=== PATIENT | female | born 1985 | race African-American/Black ===

== ENCOUNTER 2019-01-15 14:23 | Observation (INO) ==
[2019-01-15] MEDS ORDERED: SODIUM CHLORIDE 0.9% 1,000 ML IV PRN ×2 (17:07→18:29)
[2019-01-15 17:24] LABS: Hematocrit 26.2 VOL% (35.7-47.0); Hemoglobin 7.4 GM/DL (12.0-16.0)
[2019-01-16 05:46] LABS: Basophils % 0.3 % (0.0-0.8); Eosinophils # 0.2 10*3/uL (0.0-0.87); Eosinophils % 2.6 % (0.00-10.9); Hematocrit 28.9 VOL% (35.7-47.0); Hemoglobin 8.6 GM/DL (12.0-16.0); Immature Granulocytes % 0.3 %; Immature Granulocytes Absolute 0.02 #; Lymphocytes # 2.1 10*3/uL (1.4-4.0); Lymphocytes % 26.7 % (21.3-54.2); Mean Corpuscular HGB Conc 29.8 GM/DL (32-36); Mean Corpuscular Hemoglobin 22 PG (27-34); Mean Corpuscular Volume 73.9 FL (87-102); Mean Platelet Volume 10.2 FL (9.6-12.0); Monocytes # 0.5 10*3/uL (0.11-0.8); Monocytes % 6.6 % (1.7-12.7); Neutrophils # 4.9 10*3/uL (1.4-7.4); Neutrophils % 63.5 % (38.7-73.9); Platelet Count 252 T/CUMM (130-400); Red Blood Count 3.91 MC/CUMM (3.8-5.5); White Blood Count 7.7 T/CUMM (4-12)
[2019-01-16] MEDS ORDERED: LISINOPRIL 20 MG TABLET PO SCH (09:00)
[2019-01-16] MEDS ORDERED: FERROUS SULFATE 325 MG TABLET PO SCH (11:00)
[2019-01-16 11:20] VITALS: BP 156/88
== END 2019-01-16 13:55 | disposition home or self-care (01) ==
LOC: N.OB
PROVIDERS: ADMIT Obstetrics & Gynecology; ATTEND Obstetrics & Gynecology

== ENCOUNTER 2022-01-18 08:37 | Inpatient (IN) ==
[2022-01-18 09:42] LABS: Bilirubin,Urine Negative (Negative); Blood, Urine Trace mg/dL (Negative); Glucose,Urine (UA) Negative (Negative); Ketones,Urine Negative (Negative); Mucus,Urine Occasional /LPF (Occasional); Nitrite,Urine Negative (Negative); Protein,Urine 30 mg/dL (Negative); RBC,Urine 1 /HPF (0-4); Squamous Epithelial Cell,Urine Few /HPF (0-10); Urine Appearance Clear (Clear); Urine Color Yellow (Yellow); Urine Specific Gravity 1.025 (1.001-1.035); Urine Urobilinogen 0.2 eU/dL (<2.0); Urine pH 6.5 (4.5-8.0)
[2022-01-18 09:55] LABS: Basophils % 0.3 % (0.0-0.8); Eosinophils % 0.2 % (0.00-10.9); Hematocrit 27.5 VOL% (35.7-47.0); Hemoglobin 8.7 GM/DL (12.0-16.0); Immature Granulocytes % 1.4 %; Immature Granulocytes Absolute 0.13 #; Lymphocytes # 1.1 10*3/uL (1.4-4.0); Lymphocytes % 11.9 % (21.3-54.2); Mean Corpuscular HGB Conc 31.6 GM/DL (32-36); Mean Corpuscular Volume 74.1 FL (87-102); Mean Platelet Volume 10.5 FL (9.6-12.0); Monocytes % 8.2 % (1.7-12.7); NRBC # 0.02 10*3/uL; Platelet Count 243 T/CUMM (130-400); Red Blood Count 3.71 MC/CUMM (3.8-5.5); Red Cell Distribution Width 16.7 % (9.3-17.3); White Blood Count 9.2 T/CUMM (4-12)
[2022-01-18] MEDS ORDERED: LABETALOL 100 MG/20 ML VIAL IV PRN (09:55)
[2022-01-18 10:18] LABS: Alanine Aminotransferase 23 U/L (13-56); Albumin 2.1 G/DL (3.4-5.0); Alkaline Phosphatase 154 U/L (45-117); Aspartate Amino Transferase 37 U/L (0-37); Bilirubin,Direct < 0.100 MG/DL (0.0-0.20); Blood Urea Nitrogen 15 MG/DL (7-18); Carbon Dioxide 24 MMOL/L (21-32); Estimated Glom Filtration Rate 196 ML/MIN; Glucose 95 MG/DL (74-106); Osmolality,Calculated 281.3 MOS/KG (273-304); PT Patient Result 11.1 SECS (10.5-12.0); Partial Thromboplastin Time 24.8 SECS (23.8-32.1); Potassium 3.2 MMOL/L (3.5-5.1); Sodium 141 MMOL/L (136-145); Total Protein 6.7 G/DL (6.4-8.2); Uric Acid 5.6 MG/DL (2.6-6.0)
[2022-01-18] MEDS: LABETALOL 20 MG/4 ML SYRINGE IV PRN (10:19)
[2022-01-18 10:40] LABS: Protein/Creatinine Ratio,Urine 0.3 RATIO
[2022-01-18] MEDS: LABETALOL 100 MG/20 ML VIAL IV PRN ×2 (10:51→11:08)
[2022-01-18] MEDS ORDERED: hydrALAZINE 20 MG/1 ML VIAL IV ONE ×3 (11:08→11:46)
[2022-01-18] MEDS ORDERED: BUTORPHANOL 2 MG/ML VIAL IV PRN (11:31)
[2022-01-18] MEDS ORDERED: MEPERIDINE 50 MG/1 ML VIAL IV PRN (11:31)
[2022-01-18] MEDS ORDERED: miSOPROStoL 200 MCG TABLET RECTAL PRN (11:31)
[2022-01-18] MEDS ORDERED: OXYTOCIN/LR 20 UNIT/1,000 ML BAG IV ONE ×4 (11:31→20:07)
[2022-01-18] MEDS ORDERED: CARBOPROST TROMETHAMINE 250 MCG/ML AMP IM PRN (11:31)
[2022-01-18] MEDS ORDERED: ONDANSETRON 4 MG/2 ML VIAL IV PRN ×2 (11:31→20:47)
[2022-01-18] MEDS ORDERED: METHYLERGONOVINE 0.2 MG/1 ML AMP IM PRN (11:31)
[2022-01-18] MEDS ORDERED: TRANEXAMIC ACID 1,000 MG in SODIUM CHLORIDE 0.9% 100 ML IV PRN (11:31)
[2022-01-18] MEDS ORDERED: LACTATED RINGERS 1,000 ML IV SCH ×2 (12:00→21:00)
[2022-01-18] MEDS ORDERED: MAGNESIUM SULF RIDER 4 GM/100 ML PREMIX IV ONE (13:41)
[2022-01-18] MEDS ORDERED: ACETAMINOPHEN 500 MG TABLET PO ONE (13:58)
[2022-01-18] MEDS ORDERED: MAGNESIUM SULF DRIP 40 GM/1,000 ML ML IV SCH (14:00)
[2022-01-18] MEDS ORDERED: CITRIC ACID/SODIUM CITRATE 30 ML UDCUP PO ONE (14:49)
[2022-01-18] MEDS ORDERED: FAMOTIDINE 20 MG/2 ML VIAL IV ONE ×2 (14:49→15:42)
[2022-01-18] MEDS ORDERED: ceFAZolin 3,000 MG in SYRINGE 1 EACH IV ONE (14:49)
[2022-01-18] MEDS: NIFEdipine 10 MG CAPSULE PO PRN (15:26)
[2022-01-18] MEDS ORDERED: miSOPROStoL 200 MCG TABLET ONE (15:39)
[2022-01-18] MEDS ORDERED: CARBOPROST TROMETHAMINE 250 MCG/ML AMP IM ONE (15:40)
[2022-01-18] MEDS ORDERED: METOCLOPRAMIDE 10 MG/2 ML VIAL ONE (15:41)
[2022-01-18] MEDS ORDERED: buprenorphine HCL 0.3 MG/ML VIAL ONE (15:53)
[2022-01-18] MEDS ORDERED: ONDANSETRON 4 MG/2 ML VIAL ONE (15:53)
[2022-01-18] MEDS ORDERED: BUPIVACAINE SPINAL 0.75% 2 ML AMP SPINAL ONE (15:54)
[2022-01-18] MEDS ORDERED: ALBUMIN 5% 12.5 GM/250 ML VIAL IV ONE (16:00)
[2022-01-18 17:14] LABS: Mucus,Urine Occasional /LPF (Occasional)
[2022-01-18 17:24] LABS: Bilirubin,Urine Negative (Negative); Blood, Urine Negative (Negative); Glucose,Urine (UA) Negative (Negative); Ketones,Urine Negative (Negative); Nitrite,Urine Negative (Negative); Protein,Urine Negative (Negative); Urine Appearance Clear (Clear); Urine Color Yellow (Yellow); Urine Specific Gravity 1.015 (1.001-1.035); Urine Urobilinogen 0.2 eU/dL (<2.0)
[2022-01-18] MEDS ORDERED: PHENYLEPHRINE 1 MG/10 ML SYRINGE IV ONE (17:27)
[2022-01-18] MEDS ORDERED: KETOROLAC 30 MG/1 ML VIAL ONE (17:27)
[2022-01-18 17:35] LABS: Cord Arterial Blood HCO3 24.6 MMOL/L
[2022-01-18 17:44] LABS: Cord Venous Blood HCO3 21.8 MMOL/L; Cord Venous Blood PCO2 45.6 MMHG; Cord Venous Blood PO2 20.7
[2022-01-18 19:59] LABS: Basophils % 0.2 % (0.0-0.8); Hematocrit 30.3 VOL% (35.7-47.0); Hemoglobin 9.5 GM/DL (12.0-16.0); Immature Granulocytes % 1.3 %; Immature Granulocytes Absolute 0.15 #; Lymphocytes # 0.7 10*3/uL (1.4-4.0); Lymphocytes % 5.9 % (21.3-54.2); Mean Corpuscular HGB Conc 31.4 GM/DL (32-36); Mean Corpuscular Volume 74.4 FL (87-102); Mean Platelet Volume 11.1 FL (9.6-12.0); Monocytes % 6.6 % (1.7-12.7); NRBC # 0.03 10*3/uL; Platelet Count 262 T/CUMM (130-400); Red Blood Count 4.07 MC/CUMM (3.8-5.5); Red Cell Distribution Width 16.7 % (9.3-17.3); White Blood Count 11.7 T/CUMM (4-12)
[2022-01-18] MEDS ORDERED: MAGNESIUM HYDROXIDE SUSP 30 ML UDCUP PO PRN (20:47)
[2022-01-18] MEDS ORDERED: ACETAMINOPHEN 325 MG TABLET PO PRN (20:47)
[2022-01-18] MEDS ORDERED: RHO(D) IMMUNE GLOBULIN 300 MCG SYRINGE IM ONE (20:47)
[2022-01-18] MEDS ORDERED: SIMETHICONE CHEW 80 MG TABLET PO PRN (20:47)
[2022-01-18] MEDS: ACETAMINOPHEN 500 MG TABLET PO SCH (21:14)
[2022-01-18] MEDS: POTASSIUM CHLORIDE 20 MEQ TABLET PO PRN ×2 (21:16→23:17)
[2022-01-18] MEDS: LABETALOL 200 MG TABLET PO SCH (22:10)
[2022-01-19] MEDS ORDERED: diphenhydrAMINE CAP 25 MG CAPSULE PO PRN (00:14)
[2022-01-19] MEDS: KETOROLAC 30 MG/1 ML VIAL IV SCH ×3 (00:23→11:50)
[2022-01-19] MEDS: POTASSIUM CHLORIDE 20 MEQ TABLET PO PRN ×2 (01:16→03:19)
[2022-01-19 02:28] LABS: Basophils % 0.1 % (0.0-0.8); Eosinophils % 0.1 % (0.00-10.9); Hematocrit 27.3 VOL% (35.7-47.0); Hemoglobin 8.6 GM/DL (12.0-16.0); Immature Granulocytes % 1.1 %; Lymphocytes # 0.7 10*3/uL (1.4-4.0); Lymphocytes % 7.4 % (21.3-54.2); Mean Corpuscular HGB Conc 31.5 GM/DL (32-36); Mean Corpuscular Volume 74.4 FL (87-102); Mean Platelet Volume 11.2 FL (9.6-12.0); Monocytes % 7.3 % (1.7-12.7); Platelet Count 224 T/CUMM (130-400); Red Blood Count 3.67 MC/CUMM (3.8-5.5); Red Cell Distribution Width 16.9 % (9.3-17.3); White Blood Count 9.4 T/CUMM (4-12)
[2022-01-19] MEDS: ACETAMINOPHEN 500 MG TABLET PO SCH ×3 (03:18→17:41)
[2022-01-19] MEDS: DOCUSATE SODIUM 100 MG CAPSULE PO SCH ×2 (08:33→21:39)
[2022-01-19] MEDS: LABETALOL 200 MG TABLET PO SCH ×2 (08:33→21:39)
[2022-01-19] MEDS: MULTIVITAMIN (PRENATAL) TABLET PO SCH (08:33)
[2022-01-19] MEDS: ENOXAPARIN 40 MG/0.4 ML SYRINGE SUBCUT SCH (08:35)
[2022-01-19] MEDS ORDERED: FUROSEMIDE 20 MG/2 ML VIAL IV ONE (13:30)
[2022-01-19] MEDS ORDERED: CARBOPROST TROMETHAMINE 250 MCG/ML AMP IM ONE (14:57)
[2022-01-19] MEDS ORDERED: SODIUM CHLORIDE 0.9% 0 ML IV ONE (14:57)
[2022-01-19] MEDS ORDERED: TRANEXAMIC ACID 1,000 MG/10 ML VIAL ONE (14:57)
[2022-01-19] MEDS ORDERED: miSOPROStoL 200 MCG TABLET ONE (14:57)
[2022-01-19] MEDS ORDERED: METHYLERGONOVINE 0.2 MG/1 ML AMP ONE (14:57)
[2022-01-20] MEDS ORDERED: FUROSEMIDE 40 MG/4 ML VIAL IV ONE (01:51)
[2022-01-20] MEDS: LABETALOL 20 MG/4 ML SYRINGE IV PRN (02:33)
[2022-01-20] MEDS: NIFEdipine 10 MG CAPSULE PO PRN ×2 (02:35→02:58)
[2022-01-20 03:36] LABS: Calcium 7.8 MG/DL (8.5-10.1); Osmolality,Calculated 273.8 MOS/KG (273-304); Potassium 3.5 MMOL/L (3.5-5.1)
[2022-01-20] MEDS: niCARdipine INJ 25 MG in SODIUM CHLORIDE 0.9% 240 ML IV PRN ×3 (05:20→12:41)
[2022-01-20] MEDS ORDERED: FUROSEMIDE 100 MG/10 ML VIAL IV SCH (08:00)
[2022-01-20] MEDS: FERROUS SULFATE 325 MG TABLET PO SCH (08:08)
[2022-01-20] MEDS: ENOXAPARIN 40 MG/0.4 ML SYRINGE SUBCUT SCH (08:08)
[2022-01-20] MEDS: LABETALOL 200 MG TABLET PO SCH ×2 (08:09→21:12)
[2022-01-20] MEDS: DOCUSATE SODIUM 100 MG CAPSULE PO SCH ×2 (08:09→21:12)
[2022-01-20] MEDS: MULTIVITAMIN (PRENATAL) TABLET PO SCH (08:09)
[2022-01-20 08:17] LABS: Basophils % 0.1 % (0.0-0.8); Eosinophils % 0.2 % (0.00-10.9); Hematocrit 27.2 VOL% (35.7-47.0); Hemoglobin 8.7 GM/DL (12.0-16.0); Immature Granulocytes % 0.7 %; Immature Granulocytes Absolute 0.09 #; Lymphocytes # 0.8 10*3/uL (1.4-4.0); Lymphocytes % 6.7 % (21.3-54.2); Mean Corpuscular Volume 72.9 FL (87-102); Mean Platelet Volume 10.9 FL (9.6-12.0); Monocytes % 4.9 % (1.7-12.7); Neutrophils % 87.4 % (38.7-73.9); Platelet Count 265 T/CUMM (130-400); Red Blood Count 3.73 MC/CUMM (3.8-5.5); White Blood Count 12.3 T/CUMM (4-12)
[2022-01-20 08:43] LABS: Osmolality,Calculated 277.4 MOS/KG (273-304); Potassium 3.1 MMOL/L (3.5-5.1)
[2022-01-20 08:45] LABS: Alanine Aminotransferase 22 U/L (13-56); Albumin 2.2 G/DL (3.4-5.0); Alkaline Phosphatase 135 U/L (45-117); Aspartate Amino Transferase 23 U/L (0-37); Bilirubin,Total < 0.39 MG/DL (0.20-1.00); Blood Urea Nitrogen 10 MG/DL (7-18); Calcium 8.2 MG/DL (8.5-10.1); Carbon Dioxide 26 MMOL/L (21-32); Estimated Glom Filtration Rate 196 ML/MIN; Glucose 97 MG/DL (74-106); Osmolality,Calculated 279.3 MOS/KG (273-304); Potassium 2.9 MMOL/L (3.5-5.1); Sodium 141 MMOL/L (136-145); Total Protein 6.6 G/DL (6.4-8.2)
[2022-01-20] MEDS ORDERED: amLODIPine 10 MG TABLET PO SCH (09:00)
[2022-01-20] MEDS: lisinopriL 20 MG TABLET PO SCH (09:03)
[2022-01-20] MEDS ORDERED: LABETALOL 200 MG TABLET PO ONE (09:36)
[2022-01-20] MEDS ORDERED: POTASSIUM CHLORIDE 20 MEQ TABLET PO ONE (14:15)
[2022-01-20] MEDS ORDERED: FUROSEMIDE 40 MG/4 ML VIAL IV SCH (16:00)
[2022-01-20] MEDS: FUROSEMIDE 40 MG/4 ML VIAL IV SCH (16:37)
[2022-01-21 06:03] LABS: Basophils % 0.2 % (0.0-0.8); Eosinophils # 0.1 10*3/uL (0.0-0.87); Eosinophils % 1.2 % (0.00-10.9); Hemoglobin 8.2 GM/DL (12.0-16.0); Immature Granulocytes % 0.8 %; Immature Granulocytes Absolute 0.09 #; Lymphocytes # 1.4 10*3/uL (1.4-4.0); Lymphocytes % 11.7 % (21.3-54.2); Mean Corpuscular HGB Conc 31.5 GM/DL (32-36); Mean Corpuscular Volume 73.9 FL (87-102); Mean Platelet Volume 10.9 FL (9.6-12.0); Monocytes % 7.8 % (1.7-12.7); NRBC # 0.02 10*3/uL; Neutrophils % 78.3 % (38.7-73.9); Platelet Count 254 T/CUMM (130-400); Red Blood Count 3.52 MC/CUMM (3.8-5.5); Red Cell Distribution Width 16.7 % (9.3-17.3); White Blood Count 11.5 T/CUMM (4-12)
[2022-01-21 06:19] LABS: Calcium 8.1 MG/DL (8.5-10.1); Osmolality,Calculated 278.4 MOS/KG (273-304); Potassium 2.8 MMOL/L (3.5-5.1)
[2022-01-21] MEDS ORDERED: POTASSIUM CHLORIDE 20 MEQ TABLET PO ONE ×3 (07:33→15:17)
[2022-01-21] MEDS ORDERED: MAGNESIUM SULF RIDER 2 GM/50 ML PREMIX IV ONE (07:33)
[2022-01-21] MEDS: MULTIVITAMIN (PRENATAL) TABLET PO SCH (08:45)
[2022-01-21] MEDS: lisinopriL 20 MG TABLET PO SCH (08:45)
[2022-01-21] MEDS: FERROUS SULFATE 325 MG TABLET PO SCH (08:45)
[2022-01-21] MEDS: ENOXAPARIN 40 MG/0.4 ML SYRINGE SUBCUT SCH (08:45)
[2022-01-21] MEDS: LABETALOL 200 MG TABLET PO SCH ×2 (08:45→22:15)
[2022-01-21] MEDS: DOCUSATE SODIUM 100 MG CAPSULE PO SCH ×2 (08:45→20:02)
[2022-01-21] MEDS: FUROSEMIDE 40 MG/4 ML VIAL IV SCH ×2 (08:50→17:35)
[2022-01-21] MEDS ORDERED: ACETAMINOPHEN 500 MG TABLET PO PRN (13:08)
[2022-01-21] MEDS: LEVOFLOXACIN INJ 750 MG/150 ML PREMIX IV SCH (18:20)
[2022-01-22 05:09] LABS: Basophils % 0.3 % (0.0-0.8); Eosinophils # 0.2 10*3/uL (0.0-0.87); Eosinophils % 2.1 % (0.00-10.9); Hematocrit 26.9 VOL% (35.7-47.0); Hemoglobin 8.4 GM/DL (12.0-16.0); Immature Granulocytes % 0.8 %; Immature Granulocytes Absolute 0.08 #; Lymphocytes # 1.2 10*3/uL (1.4-4.0); Lymphocytes % 11.9 % (21.3-54.2); Mean Corpuscular HGB Conc 31.2 GM/DL (32-36); Mean Corpuscular Volume 75.4 FL (87-102); Mean Platelet Volume 10.8 FL (9.6-12.0); Monocytes % 8.1 % (1.7-12.7); Neutrophils % 76.8 % (38.7-73.9); Platelet Count 266 T/CUMM (130-400); Red Blood Count 3.57 MC/CUMM (3.8-5.5); Red Cell Distribution Width 17.1 % (9.3-17.3); White Blood Count 9.9 T/CUMM (4-12)
[2022-01-22 05:23] LABS: Calcium 8.2 MG/DL (8.5-10.1); Osmolality,Calculated 279.4 MOS/KG (273-304)
[2022-01-22 05:25] LABS: % Iron Saturation 8.6 % (18-50); Ferritin 17.6 ng/mL (8-252)
[2022-01-22 05:29] LABS: Folate 6.48 NG/ML (5.38-24.0); Vitamin B12 396 PG/ML (211-911)
[2022-01-22] MEDS: POTASSIUM CHLORIDE 20 MEQ TABLET PO PRN ×3 (07:05→11:13)
[2022-01-22 07:06] LABS: Sedimentation Rate-Westergren 109 MM/HR (0-20)
[2022-01-22] MEDS: ENOXAPARIN 40 MG/0.4 ML SYRINGE SUBCUT SCH (08:44)
[2022-01-22] MEDS: FERROUS SULFATE 325 MG TABLET PO SCH (08:45)
[2022-01-22] MEDS: lisinopriL 20 MG TABLET PO SCH (08:45)
[2022-01-22] MEDS: MULTIVITAMIN (PRENATAL) TABLET PO SCH (08:45)
[2022-01-22] MEDS: METOPROLOL SUCCINATE XL 100 MG TABLET PO SCH (08:46)
[2022-01-22] MEDS: SERTRALINE 50 MG TABLET PO SCH (08:46)
[2022-01-22] MEDS: DOCUSATE SODIUM 100 MG CAPSULE PO SCH ×2 (08:46→22:56)
[2022-01-22] MEDS ORDERED: CHOLECALCIFEROL 1,000 UNIT TABLET PO SCH (09:00)
[2022-01-22] MEDS ORDERED: hydroCHLOROthiazide 25 MG TABLET PO SCH (09:00)
[2022-01-22 10:11] LABS: Hemoglobin A1 (Alkaline) 98.3 % (96.5-98.5); Hemoglobin A2 (Alkaline) 1.7 % (1.5-3.5)
[2022-01-22] MEDS: FUROSEMIDE 40 MG/4 ML VIAL IV SCH (11:13)
[2022-01-22] MEDS ORDERED: MAGNESIUM SULF RIDER 2 GM/50 ML PREMIX IV ONE (11:15)
[2022-01-22] MEDS ORDERED: POTASSIUM CHLORIDE 20 MEQ TABLET PO ONE ×2 (11:15)
[2022-01-22] MEDS ORDERED: METOPROLOL SUCCINATE XL 50 MG TABLET PO ONE (12:50)
[2022-01-22 14:32] LABS: Calcium 8.6 MG/DL (8.5-10.1); Osmolality,Calculated 279.4 MOS/KG (273-304); Potassium 3.5 MMOL/L (3.5-5.1)
[2022-01-22] MEDS: FUROSEMIDE 20 MG TABLET PO SCH (16:14)
[2022-01-22] MEDS: LEVOFLOXACIN INJ 750 MG/150 ML PREMIX IV SCH (18:23)
[2022-01-23] MEDS: ENOXAPARIN 40 MG/0.4 ML SYRINGE SUBCUT SCH (08:47)
[2022-01-23] MEDS: FUROSEMIDE 20 MG TABLET PO SCH ×2 (08:47→16:40)
[2022-01-23] MEDS: DOCUSATE SODIUM 100 MG CAPSULE PO SCH (08:48)
[2022-01-23] MEDS: MULTIVITAMIN (PRENATAL) TABLET PO SCH (08:48)
[2022-01-23] MEDS: METOPROLOL SUCCINATE XL 100 MG TABLET PO SCH (08:48)
[2022-01-23] MEDS: SERTRALINE 50 MG TABLET PO SCH (08:48)
[2022-01-23] MEDS: FERROUS SULFATE 325 MG TABLET PO SCH (08:48)
[2022-01-23] MEDS: lisinopriL 20 MG TABLET PO SCH (08:48)
[2022-01-23] MEDS ORDERED: CHOLECALCIFEROL 5,000 UNIT TABLET PO SCH (09:00)
[2022-01-23] MEDS ORDERED: METOPROLOL SUCCINATE XL 50 MG TABLET PO SCH (09:00)
[2022-01-23] MEDS ORDERED: DIPH/TET/ACEL PERT BOOSTER VACCINE 0.5 ML VIAL IM ONE (10:27)
[2022-01-23] MEDS ORDERED: METOPROLOL SUCCINATE XL 50 MG TABLET PO ONE (12:00)
[2022-01-23 15:16] VITALS: BP 168/85
[2022-01-24] MEDS ORDERED: METOPROLOL SUCCINATE XL 100 MG TABLET PO SCH (09:00)
== END 2022-01-23 16:50 | disposition home or self-care (01) | DRG 540 ==
LOC: N.LDOUT 08:37 → N.LD 08:39 → N.ICU 01-20 02:24 → N.OB 01-20 17:39
PROVIDERS: ADMIT Obstetrics & Gynecology; ATTEND Obstetrics & Gynecology
PROC: LDCSECT (ICD-10-PCS; 2022-01-18 15:00)